=== PATIENT | female | born 1975 | race Caucasian/White ===

== ENCOUNTER → 2021-08-31 15:57 | Outpatient (CLI) | payer SELFPAY ==
--- NOTE | 2021-08-31 16:10 | RAD_ITS ---
STUDY: X-RAY CHEST REASON FOR EXAM: Female, 46 years old. DYSPNEA TECHNIQUE: PA and lateral views of the chest. COMPARISON: None. FINDINGS: Patchy alveolar opacities throughout both lungs consistent with bilateral pneumonia. There is no demonstrated pleural abnormality. Normal size heart. Normal mediastinum and jaqui. Normal visualized pulmonary arteries. Normal visualized aortic arch and descending thoracic aorta. Normal visualized thoracic spine. Normal visualized ribs, clavicles, and shoulders. There is no demonstrated abnormality of the visualized soft tissue structures of the upper abdomen. RAD/Chest PA and Lateral IMPRESSION: Patchy bilateral pneumonia. Electronically Signed: Jed Low MD at 16:30 EDT Tel , Service support ,
== END ==
PROVIDERS: PCP Family Medicine; Referring Provider Nurse Practitioner Adult Health; Visit Provider Nurse Practitioner Adult Health
DX: J20.9 Acute bronchitis, unspecified (principal); J18.9 Pneumonia, unspecified organism
CPT/HCPCS: 71046

== ENCOUNTER 2023-12-21 06:16 | Emergency (ER) | payer OTHER, SELFPAY ==
[2023-12-21 06:17] VITALS: TEMP 36; BMI 37.2
[2023-12-21 06:19] VITALS: BP 196/94; PULSE 95; RESP 18; O2SAT 100
--- NOTE | 2023-12-21 06:20 | EKG12_ITS ---
Test Reason : CP Blood Pressure : / mmHG Vent. Rate : 089 BPM Atrial Rate : 089 BPM P-R Int : 148 ms QRS Dur : 076 ms QT Int : 354 ms P-R-T Axes : 002 003 017 degrees QTc Int : 430 ms Normal sinus rhythm Nonspecific ST abnormality Abnormal ECG Confirmed by RAQUEL JACOBS, VICKIE ([id number]), assignment editor MILEY VILLAGOMEZ ([id number]) on 12/22/2023 10:38:00 AM Referred By: Confirmed By:VICKIE GARCÍA MD
--- NOTE | 2023-12-21 06:41 | RAD_ITS ---
EXAM: XR CHEST, 2 VIEWS CLINICAL INDICATION: chest pain TECHNIQUE: Frontal and lateral views of the chest. COMPARISON: 2 view chest 08/31/2021. FINDINGS: LUNGS AND PLEURAL SPACES: Unremarkable. No consolidation or edema. No pneumothorax. No effusion. HEART: Unremarkable. Cardiac silhouette not enlarged. MEDIASTINUM: Central airways and mediastinal contour are unremarkable. BONES/JOINTS: Degenerative changes of the spine. No acute fracture. SOFT TISSUES: Unremarkable. RAD/Chest PA and Lateral IMPRESSION: No acute findings in the chest. Electronically Signed: Shelton Preciado MD at 7:41 EST ,
--- OUTSIDE RECORDS SUMMARY | 2023-12-21 06:52 | XMS RPT_ITS | CCD ---
Author Name Unknown Address [address] [place] [address] Organization [facility] Care Team Providers Care Mold Polisher Name Role Phone JOS CORTEZ Attending Unavailable JOS CORTEZ Primary Care Unavailable JOS CORTEZ Admitting Unavailable Problems Problem Classification Problem Date Documented Da te Episodic/Chronic Other screening for suspected conditions (not mental disorders or infectious disease) (4 sources) Encounter for screening mammogram for malignant neoplasm of breast; Translations: [Other abnormal and inconclusive findings on diagnostic imaging of breast] Onset: 02-24-2022 Episodic Results Test Name Value Interpretation Reference Range Facil ity Encounters Encounter Date Encounter Type Care Provider Facility Start: 02-24-2022 End: 02-24-2022 ambulatory JOS CORTEZ [facility] Payers Date Payer Category Payer Unknown [id number] Unknown Summary Purpose Family History No Family History Records FoundNo Family History Records Found Advance Directives No Advanced Directives Records FoundNo Advanced Directives Records Found Additional Source Comments INFORMATION SOURCE (unrecogn ized section and content) DATE CREATED AUTHOR AUTHOR'S ORGANIZ ATION 03/13/2022 [facility] FOR RECORDS PERTAINING TO PATIENTS WHO ARE OR HAVE BEEN ENROLLED IN A CHEMICAL DEPENDENCY/SUBSTANCEABUSE PROGRAM, SOME INFORMATION MAY BE OMITTED. This clinical summary was aggregated from multiple sources. Caution should be exercised in using it in the provision of clinical care. This summary normalizes information from multiple sources, and as a consequence, information in this document may materially change the coding, format and clinical context of patient data. In addition, data may be omitted in some cases. CLINICAL DECISIONS SHOULD BE BASED ON THE PRIMARY CLINICAL RECORDS. [facility]. provides no warranty or guarantee of the accuracy or completeness of information in this document.
[2023-12-21 06:54] LABS: Absolute Lymphocyte Count 1.82 X10^3/uL (0.83-4.51); Basophil# 0.05 X10^3/uL; Basophil% 0.6 % (0-1); Eosinophil# 0.21 X10^3/uL; Eosinophils% 2.4 % (0-5); Hematocrit 41.7 % (37-47); Hemoglobin 13.1 g/dL (12.0-15.0); Lymphocyte # 1.82 X10^3/ul (0.83-4.51); Lymphocyte % 20.8 % (19-41); Mean Corp Hgb Conc 31.4 g/dL (32-36); Mean Corpuscular Volume 92.3 fL (81-99); Mean Platelet Vol. 8.6 fl (6.2-12.0); Monocyte# 0.68 X10^3/uL; Monocyte% 7.8 % (0-10); NRBC Flagged by Analyzer 0 % (0-5); Neutrophil # 5.96 X10^3/uL (2.7-7.7); Neutrophil % 67.9 % (47-70); Platelet Count 324 K/mm3 (150-450); RBC Distribution Width CV 12.7 % (11.6-14.6); RBC Distribution Width SD 43.1 fl (35.1-43.9); Red Blood Count 4.52 M/mm3 (4.2-5.4); White Blood Count 8.8 K/mm3 (4.4-11.0)
[2023-12-21 07:07] LABS: D-Dimer Quantitative (DVT/PE) 0.28 FEU/ug/m (0.27-0.49)
[2023-12-21 07:13] LABS: ALB/GLOB Ratio 0.9 RATIO (0.9-2.4); AST(SGOT) 28 U/L (15-37); Alanine Aminotransfer ALT/SGPT 26 U/L (13-56); Albumin, Serum 3.7 g/dL (3.2-5.0); Alkaline Phosphatase 86 U/L (45-117); Anion Gap 3 (5-15); BUN 17 mg/dL (7-18); Chloride 110 mmol/L (98-107); Creatinine, Serum 0.85 mg/dL (0.55-1.02); EST Glomerular Filtration Rate 75 mL/min (>60); Est Glom Filt Rate - Afr Amer 91 mL/min (>60); Estimated Creatinine Clearance 103.47 ml/min; Globulin 4.1 g/dL (2.2-4.2); Glucose 118 mg/dL (74-106); Lipase 35 U/L (13-75); Potassium 4.2 mmol/L (3.5-5.1); Protein, Total 7.8 g/dL (6.4-8.2); Sodium Level 138 mmol/L (136-145); Troponin-I HS 5 pg/mL (3.0-54.0)
[2023-12-21 07:16] VITALS: RESP 16
[2023-12-21] MEDS: Mag Hydrox/Al Hydrox/Simeth 30 ML UDC PO (07:17)
[2023-12-21] MEDS: Lorazepam 2 MG/ML WCH Syringe 1 MG IV (07:29)
--- NOTE | 2023-12-21 07:38 | EDS_ITS ---
HPI History of Present Illness Chief Complaint: Chest Pain Informant: patient and spouse/S.O. Narrative Narrative: Patient is a 48-year-old female with previous history of cholecystectomy but otherwise no significant past medical history or daily medication other than [id number] supplement. She states that last night she began developing intermittent midsternal chest discomfort. She states it was more sharp in nature and felt like it could radiate towards her back. She states that it felt like she had to burp . She states that there was no nausea vomiting diaphoresis or shortness of breath associated with this. She states that the pain would come on whether she was at rest or being active. She states she cannot sleep secondary to the persistent nature of the pain. She also reports that her brother roughly 6 years ago from a sudden massive heart attack . She denies any history of hypertension hyperlipidemia diabetes or illicit drug use. She also denies any history of DVT/PE with the persistent symptoms comes in for evaluation. Of note the patient's spouse does state that she had something similar multiple years ago that was seen in outside facility and cardiac workup was negative. PFSH PFS Allergy/AdvReac Type Severity Reaction Status Date / Time No Known Allergies Allergy Verified 12/21/23 07:04 Surgical History (Updated 12/21/23 @ 06:20 by Maddison Colindres) History of appendectomy Social History Smoking Status: Never smoker [facility] ED Constitutional Constitutional ED: Denies chills or fever(s) Eyes Eyes: Denies blurry vision or change in vision ENT ENT ED: Denies sore throat Cardiovascular Cardiovascular: Reports chest pain; Denies palpitations or racing heartbeat Respiratory/Chest Respiratory/Chest: Denies cough or dyspnea Gastrointestinal Gastrointestinal: Reports abdominal pain; Denies diarrhea, nausea or vomiting Genitourinary Genitourinary ED: Denies dysuria Musculoskeletal Musculoskeletal: Denies myalgias Integumentary Denies rash Neurologic Neurologic: Denies headache(s) Hematologic/Lymphatic Hematologic/Lymphatic: Denies easy bleeding or easy bruising EXAM Physical Exam Const Vital Signs: 12/21/23 06:17 12/21/23 06:19 Temperature 96.8 F L Temperature Source Temporal Pulse Rate 95 Respiratory Rate 18 Blood Pressure 196/94 H Blood Pressure Mean 128 Pulse Ox 100 Oxygen Delivery Method Room Air Positive well nourished and well developed General Appearance ED: well developed; Negative for pallor HEENT Reports moist mucous membranes HEENT Narrative: No tongue or lip swelling no oral lesions or airway edema or compromise No findings to suggest infection in the posterior pharynx Eyes PERRL and EOMs intact bilaterally General Eye ED: Negative for scleral icterus Neck supple and no JVD Neck Narrative: No carotid bruits noted Chest Wall Chest Narrative: There is reproducible anterior chest wall pain on palpation without bony deformity or crepitance noted Resp normal respiratory effort and clear to auscultation bilaterally Resp Narrative: No nasal flaring retractions tachypnea or accessory muscle use Cardio regular rate and regular rhythm Rate: other Other Details: Heart is regular rate and rhythm without murmurs rubs or gallops Radial and carotid pulses are equal and symmetric GI non-distended GI Narrative: Abdomen is soft and nondistended with normal active bowel sounds. There is mild pain with palpation in the midepigastric region without voluntary guarding or rigidity or pulsatile mass Auscultation: normoactive bowel sounds Palpation: soft Extremity normal to inspection Extremity Narrative: No asymmetric edema no pitting edema negative Homans' sign bilaterally Neuro oriented x3, CN's II-XII intact bilaterally and no sensory deficits noted Sensorium / Orientation: alert Motor Exam: strength 5/5 throughout Psych Psych Narrative: Patient is a tearful/anxious affect Skin no rashes or lesions noted General Skin Exam: Negative for jaundice or pallor MDM MDM MDM Narrative Medical decision making narrative: Patient presented to the ER hypertensive otherwise with stable vitals. She is low risk for cardiovascular disease as well as DVT/PE and her report of chest discomfort is not classic cardiac. However because of her past medical history of brother having a sudden heart attack leading to I did elect to perform a basic cardiac workup as well as evaluation of potential biliary or pancreas d ysfunction. Labs revealed no clinically significant findings with an initial troponin of 5 going against acute coronary syndrome and a lipase of 35 going against acute pancreatitis. D-dimer is also normal going against DVT/PE or aortic dissection. I felt the patient's hypertension was related to her stress and anxiety and not truly due to undiagnosed hypertension. She was given IV Ativan secondary to this as well as a GI cocktail as her discomfort appear to be more GI in nature than cardiovascular. After treatment with this she had improvement of her chest discomfort and her blood pressure also improved. Delta troponin will be obtained as well secondary to the intermittent nature of her discomfort. At this time as she is overall low risk for cardiovascular disease and so far has a negative workup I feel that if delta troponin is normal she is otherwise safe for discharge. As this laboratory studies still pending she will be signed out to the day physician Dr. Whiting History & Record Review Discussion w/independent historian: Patient and Significant other Lab Data Attestation: I reviewed the patient's lab results. Labs: Laboratory Results - last 24 hr 12/21/23 06:47 WBC 8.8 RBC 4.52 Hgb 13.1 Hct 41.7 MCV 92.3 MCH 29.0 MCHC 31.4 L RDW Std Deviation 43.1 RDW Coeff of Pastor 12.7 Plt Count 324 MPV 8.6 Immature Gran % (Auto) 0.500 Neut % (Auto) 67.9 Lymph % (Auto) 20.8 [place] % (Auto) 7.8 Eos % (Auto) 2.4 Baso % (Auto) 0.6 Absolute Neuts (auto) 6.0 Absolute Lymphs (auto) 1.82 Nucleated RBC % 0 D-Dimer Quant (PE/DVT) 0.28 Sodium 138 Potassium 4.2 Chloride 110 H Carbon Dioxide 25.0 Anion Gap 3 L BUN 17 Creatinine 0.85 Estim Creat Clear Calc 103.47 Est GFR (MDRD) Af Amer 91 Est GFR (MDRD) Non-Af 75 BUN/Creatinine Ratio 20.0 Glucose 118 H Calcium 9.0 Total Bilirubin 0.30 AST 28 ALT 26 Alkaline Phosphatase 86 Troponin I High Sens 5 Total Protein 7.8 Albumin 3.7 Globulin 4.1 Albumin/Globulin Ratio 0.9 Lipase 35 Radiography Diagnostic Testing: Clinical Impression(s) from Imaging Studies Chest X-Ray 12/21/23 06:41 IMPRESSION: No acute findings in the chest. Electronically Signed: Shelton Preciado MD at 7:41 EST , Chest x-ray as interpreted by the emergency medicine physician reveals no acute infiltrate pneumothorax pleural effusion or widening of the mediastinum Discharge Plan Triage Chief Complaint: Chest Pain ED Provider: Alfredo Whelan Dx/Rx/DC Orders Clinical Impression: Nonspecific chest pain, Anxiety, Gastritis Instructions: ED Anxiety Reaction, ED Chest Pain, Uncertain Cause, ED Gastritis (Adult) Primary Care Provider: Care Physician,No Primary Referrals: Golden Bergman MD [Med Staff - Active Staff] - Care Physician,No Primary [Primary Care Provider] - Disposition Disposition: Home, Self Care
[2023-12-21 08:16] VITALS: BP 157/79; PULSE 82; RESP 16; O2SAT 98
[2023-12-21] MEDS: Famotidine 200 MG/20 ML MDV 20 MG in 0.9% Normal Saline (Pres. free 8 ML 300 MG IV (08:21)
[2023-12-21 09:00] VITALS: RESP 18
[2023-12-21 09:22] LABS: Troponin-I HS 8 pg/mL (3.0-54.0)
[2023-12-21 09:44] VITALS: BP 156/89; PULSE 74; RESP 16; TEMP 36.2; O2SAT 95
== END 2023-12-21 09:45 | disposition home or self-care (01) ==
PROVIDERS: Emergency Provider Emergency Medicine; Visit Provider Emergency Medicine
DX: R07.89 Other chest pain (principal); F41.9 Anxiety disorder, unspecified; K29.70 Gastritis, unspecified, without bleeding; Z82.41 Family history of sudden cardiac death
CPT/HCPCS: 71046; 80053; 83690; 84484; 85025; 85379; 93005; 96374; 96375; 99283; A4216; J3490

== ENCOUNTER → 2025-08-23 | Outpatient (CLI) | payer MEDICAID, SELFPAY ==
[2025-08-23 09:56] LABS: Hematocrit 41.0 % (37-47); Hemoglobin 13.3 g/dL (12.0-15.0); Immature Granulocytes Count 0.020 X10^3/uL (0.0-0.0); Mean Corp Hgb Conc 32.4 g/dL (32-36); Mean Corpuscular Volume 93.2 fL (81-99); Mean Platelet Vol. 8.6 fl (6.2-12.0); NRBC Flagged by Analyzer 0 % (0-5); Platelet Count 324 K/mm3 (150-450); RBC Distribution Width CV 12.6 % (11.6-14.6); RBC Distribution Width SD 43.3 fl (35.1-43.9); Red Blood Count 4.40 M/mm3 (4.2-5.4); White Blood Count 7.5 K/mm3 (4.4-11.0)
[2025-08-23 10:43] LABS: AST(SGOT) 30 U/L (<=31); Alanine Aminotransfer ALT/SGPT 22 U/L (<=34); Albumin, Serum 4.2 g/dL (3.5-5.0); Alkaline Phosphatase 85 U/L (35-104); Anion Gap 9 (5-15); BUN 18 mg/dL (4-19); BUN/Creat Ratio 23.7 RATIO (10-20); Calcium,Total 9.3 mg/dL (7.6-11.0); Carbon Dioxide 25.7 mmol/L (21.0-32.0); Chloride 104 mmol/L (98-108); Cholesterol 207 mg/dL (<=200); Globulin 3.3 g/dL (2.2-4.2); Glucose 94 mg/dL (70-99); Low Density Lipoprotein Calc. 138 mg/dL; Potassium 4.5 mmol/L (3.3-5.1); Triglycerides 97 mg/dL; Very Low Density Lipoprotein 19 mg/dL (5-40); cholesterol:hdl ratio screen 4.05
== END | disposition home or self-care (01) ==
LOC: LAB 09:26
PROVIDERS: PCP Nurse Practitioner Family; Referring Provider Nurse Practitioner Family; Visit Provider Nurse Practitioner Family
DX: K59.00 Constipation, unspecified (principal); K21.9 Gastro-esophageal reflux disease without esophagitis; N39.3 Stress incontinence (female) (male)
CPT/HCPCS: 36415; 80053; 80061; 84443; 85025

== ENCOUNTER → 2025-09-11 | Outpatient (CLI) | payer MEDICAID, SELFPAY ==
[2025-09-13 15:08] LABS: HPV APTIMA, High Risk Negative (Negative)
== END | disposition home or self-care (01) ==
LOC: LABSPEC 12:11
PROVIDERS: PCP Nurse Practitioner Family; Visit Provider Nurse Practitioner Women's Health
DX: Z12.4 Encounter for screening for malignant neoplasm of cervix (principal)
CPT/HCPCS: 87624; 88175; G0145

== ENCOUNTER → 2025-09-11 | Outpatient (CLI) | payer MEDICAID, SELFPAY ==
--- NOTE | 2025-09-11 16:30 | BI_ITS ---
EXAM: SCRN MAMM (CAD)W/KENNEDY BILAT DATE: 09/11/2025 CLINICAL HISTORY: F, Age 50 y/o , SCREENING Grandmother with breast cancer. TECHNIQUE: Procedure Code: [id number] Modality: MG Procedure: SCRN MAMM (CAD)W/KENNEDY BILAT COMPARISON: Prior exam(s) dated February 24, 2022.. FINDINGS: TISSUE DENSITY: There are scattered areas of fibroglandular density. Bilateral Breast Mammographic Findings: No significant masses, calcifications or other abnormalities are identified. No suspicious masses, areas of developing architectural distortion, or suspicious calcifications. There has been no significant interval change. BI/SCRN MAMM (CAD)W/KENNEDY BILAT IMPRESSION: Stable bilateral screening mammogram. OVERALL FINAL ASSESSMENT BI-RADS 1: NEGATIVE. RECOMMENDATION: Routine annual follow-up in 1 Year Additional Recommendation none A letter with findings and recommendations will be mailed to the patient. Reading Location: [place] [id number]
== END | disposition home or self-care (01) ==
LOC: OPBI 16:03
PROVIDERS: PCP Nurse Practitioner Family; Referring Provider Nurse Practitioner Family; Visit Provider Nurse Practitioner Family
DX: Z12.31 Encounter for screening mammogram for malignant neoplasm of breast (principal)
CPT/HCPCS: 77063; 77067